=== PATIENT | female | born 1950 | race Caucasian/White ===

== ENCOUNTER → 2017-02-12 | Outpatient (CLI) | payer BC, MEDICARE ==
[~2017-02-12] MED LIST: CELE-34 PO; CHLO25TA16 PO; DEXL30CA6 PO; ESTR1PAT43 TD; GLUC1CAP25 PO; LOSA100T44 PO; POTA20TA68 PO; [UNRECOGNIZED DRUG - CODE] PO
--- NOTE | 2017-02-12 12:25 | DI ---
Indication: ITS.REASON: M54.5 LOW BACK PAIN with pain radiating down the legs, greater on the right PROCEDURE: MRI LUMBAR SPINE W/O CONTRAST: Encounter: Initial Comparison: None Technique: Multiplanar multisequence MR imaging of the lumbar spine was performed without contrast. Findings: Alignment lumbar spine is abnormal with dextroscoliosis. No acute fracture identified. Degenerative endplate changes seen at L2-L3 and L3-L4. The conus medullaris terminates normally at L1. The paraspinal soft tissues show a small left renal cyst but are otherwise unremarkable. Segmental analysis: L1-L2: Moderate disk height loss without focal disk protrusion or central canal stenosis. Mild degenerative facet disease without significant neural foraminal stenosis. L2-L3: Severe disk height loss with anterior osteophytes. No central protrusion or central canal stenosis. No right-sided neural foraminal narrowing. Osteophytes contributing to mild left neural foraminal narrowing. L3-L4: Mild disk height loss with a small annular bulge contributes to mild central canal narrowing. Mild left neural foraminal stenosis. No significant right foraminal narrowing. L4-L5: Degenerative facet disease with mild disk bulging contributes to mild central canal narrowing. Mild right neural foraminal narrowing. No significant left foraminal stenosis. L5-S1: Right-sided degenerative facet disease. No focal disk protrusion or central canal stenosis. Small right foraminal disk bulge causing mild right neural foraminal narrowing, abutting the exiting right L5 nerve root. No left foraminal narrowing. Impression: Scoliosis with mild degenerative disk and facet disease as above. Areas of mild neural foraminal stenosis with possible slight nerve root impingement on the right at L5-S1. .
== END ==
LOC: IMA 09:46
PROVIDERS: ATTEND Orthopaedic Surgery
DX: M48.06 Spinal stenosis, lumbar region (principal); M41.9 Scoliosis, unspecified; M47.9 Spondylosis, unspecified; M51.26 Other intervertebral disc displacement, lumbar region; M51.36 Other intervertebral disc degeneration, lumbar region; M47.27 Other spondylosis with radiculopathy, lumbosacral region